=== PATIENT | male | born 2000 | race Caucasian/White ===

== ENCOUNTER 2023-01-17 18:59 | Emergency (ER) | payer OTHER ==
[~2023-01-17] VITALS: Ht 177.8 cm; Wt 74.8 kg
[2023-01-17 19:14] VITALS: BP 137/102
[2023-01-17] MEDS ORDERED: IBUPROFEN 600 MG TAB PO ONE (19:15)
--- NOTE | 2023-01-17 19:18 | NUR ---
PT TO MICAELA W/C ASSISTED
--- NOTE | 2023-01-17 19:25 | NUR ---
PT TAKEN TO XRAY
--- NOTE | 2023-01-17 19:46 | NUR ---
Patient returned back from X-ray.
--- NOTE | 2023-01-17 19:50 | NUR ---
PT TAKEN TO BED 10
[2023-01-17] MEDS ORDERED: LIDOCAINE 1% 500 MG/ 50 ML VIAL INJ ONE (19:55)
[2023-01-17] MEDS ORDERED: LIDOCAINE MPF 1% 5 ML ONE (19:56)
--- NOTE | 2023-01-17 20:00 | NUR ---
DOYLE HERNANDES AT BEDSIDE
[2023-01-17] MEDS ORDERED: IBUP-1842 PO (20:13)
--- NOTE | 2023-01-17 20:14 | NUR ---
X-Ray at bedside.
== END 2023-01-17 20:35 | disposition home or self-care (01) ==
LOC: MED 18:59
DX: M79.675 Pain in left toe(s) (principal); S93.112A Dislocation of interphalangeal joint of left great toe, initial encounter; W50.1XXA Accidental kick by another person, initial encounter; Y93.66 Activity, soccer; Y92.89 Other specified places as the place of occurrence of the external cause; Y99.8 Other external cause status
CPT/HCPCS: 28660; 73660; 99284; J2001